=== PATIENT | female | born 1995 | race Caucasian/White ===

== ENCOUNTER 2020-05-23 15:04 | Emergency (ER) | payer OTHER, SELFPAY ==
[2020-05-23 15:05] VITALS: BP 133/90; PULSE 87; RESP 17; TEMP 36.8; O2SAT 98; BMI 16.5
--- NOTE | 2020-05-23 15:20 | HMH.EDGENADL ---
ED Disposition Clinical Impression: Acute anxiety, Medication side effect Disposition: Home, Self-Care Condition on Discharge: Good Instructions: DI for Anxiety -- Adult Additional Instructions: Do not take Paxil. Follow-up with primary care provider next week. Referrals: Siomara Gallegos PA [Primary Care Provider] - - Critical Care Critical Care Time: No Attestation: On 05/23/20, the high probability of a clinically significant, sudden or life threatening deterioration of the following system(s) required my full and direct attention, intervention and personal management. The time I documented below is in addition to time spent performing reported procedures but includes the following listed in this critical care notation. Medical Decision Making - Medical Records Medical records reviewed: Yes: I reviewed the patient's medical records. - Andrew Inquiry Pt receiving controlled substance: Yes (single dose in ED) Andrew was queried for this patient: No Reason not queried -: Emergent pt cond-no time Risks and benefits of using a controlled substance: were not discussed with pt by me Vital Signs: 05/23/20 15:05 05/23/20 15:37 Temperature 98.2 F 98.1 F Temperature Source Oral Oral Pulse Rate 87 Pulse Rate [Right] 87 Respiratory Rate 17 16 Blood Pressure 130/90 Blood Pressure [Right Arm] 133/90 Blood Pressure Mean [Right Arm] 104 Blood Pressure Source Automatic Cuff Blood Pressure Position Sitting 02 Sat by Pulse Oximetry 98 Oxygen Delivery Method Room Air - Lab Data Lab Results 05/23/20 15:23: Urine Color Yellow, Urine Appearance Clear, Urine pH 7.0, Ur Specific [place] <= 1.005, Urine Protein Negative, Urine Glucose (UA) Negative, Urine Ketones Negative, Urine Blood Negative, Urine Nitrate Negative, Urine Bilirubin Negative, Urine Urobilinogen 0.2, Ur Leukocyte Esterase Negative, Urine RBC None, Urine WBC Occasional, Ur Squamous Epith Cells 5-10, Urine Bacteria None 05/23/20 15:23: Urine HCG, Qual Negative 05/23/20 15:23: Urine Opiates Screen Negative, Urine Methadone Screen Negative, Ur Barbituates Screen Negative, Ur Phencyclidine Scrn Negative, Ur Amphetamines Screen Negative, U Benzodiazepines Scrn Negative, Urine Cocaine Screen Negative, U Marijuana (THC) Screen Negative Orders (Tests/Meds): ED MEDICATIONS Discontinued Medications Generic Name Dose Route Start Last Admin Trade Name Freq PRN Reason Stop Dose Admin Lorazepam 2 mg 05/23/20 15:27 05/23/20 15:29 Ativan 1mg Tablet PO 05/23/20 15:28 2 mg ONCE ONE Administration General Adult HPI - General Stated complaint: medication reaction Time Seen by Provider: 05/23/20 15:20 - History of Present Illness HPI narrative: Complains of anxiety/medication reaction. She was seen by her primary care provider on 05/20/2020 for anxiety and depression and was started on Paxil daily. She has had 3 doses and has developed shakiness and a feeling of anxiety and panic attack. Mother says that they called the doctor in the emergency room this morning and they were advised to discard the medication. She has not taken a dose today, but says that she is still experiencing symptoms and mother says she felt like she needed to bring her in so that she can get something to smooth her out and help with her anxiety and shakiness. She says she has an appointment for follow-up with her primary care provider. - Related Data Home Medications Medication Instructions Recorded Confirmed PARoxetine HCl [Paxil] 10 mg PO DAILY 05/23/20 05/23/20 Allergies Allergy/AdvReac Type Severity Reaction Status Date / Time No Known Allergies Allergy Verified 05/20/20 13:54 [facility] History - Hepatitis A Screen Attestation statement:: This patient has been screened for Hepatitis A risk factors. I have reviewed the patient's past medical history: Yes Medical History: Denies:: Diabetes Mellitus Type 1, Diabetes Mellitus Type
[2020-05-23 15:25] LABS: Microscopic, Urine URINE MICROSCOPIC (MICROSCOPIC)
[2020-05-23 15:33] LABS: Appearance,Urine CLEAR (Clear); Bilirubin,Urine Negative (Negative); Blood, Urine Negative (Negative); Color,Urine YELLOW (Yellow); Glucose,Urine (UA) Negative (Negative); Ketones,Urine Negative (Negative); Leukocyte Esterase,Urine Negative (Negative); Nitrate,Urine Negative (Negative); Protein,Urine Negative (Negative); Specific Gravity, Urine <= 1.005 (1.005-1.030); Urobilinogen,Urine 0.2 EU/dl (0.2)
[2020-05-23 15:35] LABS: Urine Pregnancy, HCG Qual. Negative (Negative)
[2020-05-23 15:37] VITALS: BP 130/90; PULSE 87; RESP 16; TEMP 36.7; O2SAT 98
[2020-05-23 15:38] LABS: WBC,Urine Occasional #/hpf (0-3)
[2020-05-23 15:44] LABS: Barbiturates Screen,Urine Negative ng/ml (<200)
[2020-05-23 15:45] LABS: Benzodiazepines Screen,Urine Negative ng/ml (<200)
[2020-05-23 15:46] LABS: Amphetamine/Metha Screen,Urine Negative ng/ml (<1000); Cannabinoid Screen,Urine Negative ng/ml (<50)
[2020-05-23 15:47] LABS: Cocaine Screen,Urine Negative ng/ml (<300)
[2020-05-23 15:48] LABS: Methadone Screen,Urine Negative ng/ml (<300); Opiate Screen,Urine Negative ng/ml (<300)
[2020-05-23 15:49] LABS: Phencyclidine Screen,Urine Negative ng/ml (<25)
== END 2020-05-23 15:38 | disposition home or self-care (01) ==
PROVIDERS: Emergency Provider Emergency Medicine; PCP Physician Assistant
DX: G25.1 Drug-induced tremor (principal); T43.225A Adverse effect of selective serotonin reuptake inhibitors, initial encounter; Y92.019 Unspecified place in single-family (private) house as the place of occurrence of the external cause; F41.8 Other specified anxiety disorders
CPT/HCPCS: 80305; 81001; 81025; 99282

== ENCOUNTER 2020-09-11 14:19 | Emergency (ER) | payer OTHER, SELFPAY ==
[2020-09-11 14:28] VITALS: BP 97/67; PULSE 68; RESP 20; TEMP 36.7; O2SAT 100; BMI 17.4
[2020-09-11 14:30] VITALS: BP 97/67; PULSE 68; RESP 20; TEMP 36.7; O2SAT 100; BMI 17.4
--- NOTE | 2020-09-11 14:37 | HMH.EDUTC ---
[facility] [place] Disposition Clinical Impression: Viral syndrome Migraine headache Qualifiers: Migraine type: unspecified Status migrainosus presence: without status migrainosus Intractability: not intractable Qualified Code(s): G43.909 - Migraine, unspecified, not intractable, without status migrainosus Disposition: Home, Self-Care Condition on Discharge: Good Instructions: DI for Viral Syndrome, Preventing the Spread of Coronavirus Discharge Instructions Additional Instructions: Drink plenty of fluids. Take tylenol or ibuprofen for pain or fever. Follow up with your regular doctor. GO TO THE ER FOR ANY WORSENING SYMPTOMS Referrals: Siomara Gallegos PA [Primary Care Provider] - Forms: Work/School Release Time of Disposition: 15:12 Medical Decision Making - Medical Records Medical records reviewed: No: I reviewed the patient's medical records. - Andrew Inquiry Pt receiving controlled substance: No Vital Signs: 09/11/20 14:28 09/11/20 14:30 09/11/20 15:17 Temperature 98.1 F 98.1 F 98.1 F Temperature Source Oral Oral Oral Pulse Rate 68 Pulse Rate [Right Radial] 68 68 Respiratory Rate 20 20 20 Blood Pressure 97/67 L Blood Pressure [Right Arm] 97/67 L 97/67 L Blood Pressure Mean [Right Arm] 77 77 Blood Pressure Source Automatic Cuff Blood Pressure Source [Right Arm] Automatic Cuff Automatic Cuff Blood Pressure Position Sitting Blood Pressure Position [Right Arm] Sitting Sitting 02 Sat by Pulse Oximetry 100 100 Oxygen Delivery Method Room Air Room Air Room Air - Lab Data Lab Results 09/11/20 14:41: Influenza Type A Ag Negative, Influenza Type B Ag Negative 09/11/20 14:41: Strep Scn Rapid Clinic Negative Orders (Tests/Meds): ORDERS Category Date Time Status Strep Screen Confirmation Stat Micro 09/11/20 14:41 Received [facility] [place] HPI - General Stated complaint: burred vision, headache Time Seen by Provider: 09/11/20 14:37 Mode of Arrival: Ambulatory Source of Information: Patient Limitations: No Limitations Description of Symptoms (Recalled from Triage Doc. by RN): c/o fever and blurry vision when the her fever was high of 102, only pain behind her eyes at this time. Some nausea and headache. Her work wants her tested for covid HEENT Symptoms (Recalled from RN notes): Yes Resp Symptoms (Recalled from RN notes): No Skin Symptoms (Recalled from RN notes): No MS Symptoms (Recalled from RN notes): No Functional Status (Recalled from RN notes): WNL - History of Present Illness Provider Complaint: She states that she woke up this morning running a fever up to 101 and chilling. Since then she has had headache and blurry vision. She has a history of migraine headache, but she has never had blurry vision with them. - Related Data Previous Rx's Medication Instructions Recorded quetiapine 25 mg tablet 25 mg PO QHS #30 tab 08/10/20 Allergies Allergy/AdvReac Type Severity Reaction Status Date / Time paroxetine AdvReac Intermediate Verified 07/29/20 13:46 - Worker's Comp Is this a Worker's Comp case?: No [facility] History - Hepatitis A Screen Drug use history?: No High risk sexual behaviors?: No History of sexually transmitted infection?: No Currently employed?: No Childcare worker?: No Do you have indoor plumbing?: Yes Do you have electricity?: Yes Attestation statement:: This patient has been screened for Hepatitis A risk factors. I have reviewed the patient's past medical history: Yes Medical History: Denies:: Diabetes Mellitus Type 1, Diabetes Mellitus Type 2 Other Surgeries: Yes: No Previous Surgery - Social History Smoking Status: Never smoker Alcohol Intake: never Substance Use Type: denies use Occupational Status: employed Housing: house Household Members: family Family Hx:: Cancer ROS Obtained: Yes All systems reviewed & no additional complaints - Constitutional Constitutional: Denies chills, Reports fever(s), Reports poor appetite, Repor
[2020-09-11 15:17] VITALS: BP 97/67; PULSE 68; RESP 20; TEMP 36.7; O2SAT 100
[2020-09-11 17:04] LABS: UTC Strep Screen (Rapid) Negative (Negative)
[2020-09-11 17:05] LABS: UTC Influenza A Antigen Negative (Negative); UTC Influenza B Antigen Negative (Negative)
== END 2020-09-11 15:18 | disposition home or self-care (01) ==
PROVIDERS: Emergency Provider Nurse Practitioner Family; PCP Physician Assistant
DX: Z20.828 Contact with and (suspected) exposure to other viral communicable diseases (principal); B34.9 Viral infection, unspecified; G43.909 Migraine, unspecified, not intractable, without status migrainosus
CPT/HCPCS: 87804; 87880; 99202; U0003

== ENCOUNTER → 2020-09-18 18:04 | Outpatient (CLI) | payer OTHER, SELFPAY | PROVIDERS: Visit Provider Nurse Practitioner Family | DX: N39.0 Urinary tract infection, site not specified (principal) | CPT/HCPCS: 87086 ==

== ENCOUNTER → 2020-09-25 14:45 | Outpatient (CLI) | payer OTHER, SELFPAY ==
--- NOTE | 2020-09-25 14:45 | US_ITS ---
PROCEDURE: US TRANSVAGINAL CLINICAL INDICATION: pelvic pain COMPARISON: No exams were available for comparison FINDINGS: UTERUS: 8cm x 5cmx 5cm with a combined endometrial thickness of 6.6mm LEFT OVARY: [id number] with a volume of 9.1ml. RIGHT OVARY: [id number] with a volume of 5.6ml. There is a small nabothian cyst. Bilateral ovarian blood flow is present with bilateral ovarian follicles. IMPRESSION: Negative pelvic ultrasound Dictated by: Stoney Sheth MD 09/25/2020 15:15 Stoney Sheth MD in [place] 09/25/2020 15:15
== END ==
PROVIDERS: PCP Physician Assistant; Visit Provider Nurse Practitioner Family
DX: R10.30 Lower abdominal pain, unspecified (principal)
CPT/HCPCS: 76830

== ENCOUNTER → 2021-02-23 17:55 | Outpatient (CLI) | payer OTHER, SELFPAY | PROVIDERS: Visit Provider Physician Assistant | DX: R39.9 Unspecified symptoms and signs involving the genitourinary system (principal) | CPT/HCPCS: 87086 ==

== ENCOUNTER 2021-03-19 14:33 | Emergency (ER) | payer OTHER, SELFPAY ==
[2021-03-19 15:10] VITALS: PULSE 78; RESP 18; TEMP 36.5; O2SAT 98; BMI 18.8
[2021-03-19 15:28] VITALS: BP 00/00; PULSE 78; RESP 18; TEMP 36.5; O2SAT 98
--- NOTE | 2021-03-19 15:41 | HMH.EDUTC ---
[facility] [place] Impression: Exposure to COVID-19 virus Disposition: Home, Self-Care Condition on Discharge: Good Instructions: Preventing the Spread of Coronavirus Discharge Instructions Additional Instructions: You have been tested for COVID19. Due to exposure, please follow [facility] guidelines for quarantine. Referrals: Siomara Gallegos PA [Primary Care Provider] - Time of Disposition: 15:44 Medical Decision Making - Andrew Inquiry Pt receiving controlled substance: No Vital Signs: 03/19/21 15:10 Temperature 97.7 F Temperature Source Temporal Artery Scan Pulse Rate [Right] 78 Respiratory Rate 18 02 Sat by Pulse Oximetry 98 Oxygen Delivery Method Room Air Orders (Tests/Meds): ORDERS Category Date Time Status Covid-19 Nasal PCR ([facility]) Routine Lab 03/19/21 15:[address] [facility] [place] - General Stated complaint: Covid test Time Seen by Provider: 03/19/21 15:41 Mode of Arrival: Ambulatory Source of Information: Patient Limitations: No Limitations Description of Symptoms (Recalled from Triage Doc. by RN): COVID TEST D/T EXPOSURE; DENIES SYMPTOMS HEENT Symptoms (Recalled from RN notes): No Resp Symptoms (Recalled from RN notes): No Skin Symptoms (Recalled from RN notes): No MS Symptoms (Recalled from RN notes): No Functional Status (Recalled from RN notes): WNL - History of Present Illness Provider Complaint: Uncle tested positive for COVID19 this morning after being exposed at work last week. She denies symptoms. Onset (ago): day(s) (1) Relieving factors: none Exacerbating factors: none Treatments prior to arrival: none - Related Data Previous Rx's Medication Instructions Recorded vilazodone 10 mg tablet 10 mg PO DAILY #30 tab 02/23/21 venlafaxine 37.5 mg 37.5 mg PO DAILY #30 cap 03/02/21 capsule,extended release 24 hr Allergies Allergy/AdvReac Type Severity Reaction Status Date / Time paroxetine AdvReac Intermediate Verified 02/23/21 14:19 - Worker's Comp Is this a Worker's Comp case?: No [facility] History - Hepatitis A Screen Drug use history?: No High risk sexual behaviors?: No History of sexually transmitted infection?: No Currently employed?: No Childcare worker?: No Do you have indoor plumbing?: Yes Do you have electricity?: Yes Attestation statement:: This patient has been screened for Hepatitis A risk factors. I have reviewed the patient's past medical history: Yes Medical History: Reports:: Anxiety, Depression, Diabetes Mellitus Type 2 Denies:: Diabetes Mellitus Type 1 Other Surgeries: Yes: No Previous Surgery Amputation: No Fractures: No - Social History Smoking Status: Never smoker Alcohol Intake: never Substance Use Type: denies use Occupational Status: employed Housing: house Household Members: family - Psychiatric History Pschychiatric History:: Reports:: Anxiety, Depression Family Hx:: Cancer ROS Obtained: Yes All systems reviewed & no additional complaints Physical Exam - General General appearance: alert, in no apparent distress - Head Head exam: normocephalic - Eye Eye exam: Present: PERRL - ENT ENT exam: Present: normal oropharynx - Respiratory Respiratory exam: Present: normal lung sounds bilaterally - Cardiovascular Cardiovascular exam: Present: regular rate, normal rhythm - Neurological Exam Neurological exam: Present: alert, oriented X3 - Psychiatric Psychiatric exam: Present: normal affect, normal mood - Skin Skin exam: Present: warm, dry, intact
== END 2021-03-19 15:42 | disposition home or self-care (01) ==
PROVIDERS: Emergency Provider Physician Assistant; PCP Physician Assistant
DX: Z20.822 Contact with and (suspected) exposure to COVID-19 (principal); F41.8 Other specified anxiety disorders; E11.9 Type 2 diabetes mellitus without complications
CPT/HCPCS: 99202; G0463; U0003

== ENCOUNTER 2021-05-04 18:05 | Emergency (ER) | payer OTHER, SELFPAY ==
[2021-05-04 18:18] VITALS: BP 116/68; PULSE 85; RESP 16; TEMP 37; O2SAT 98; BMI 16.2
--- NOTE | 2021-05-04 18:21 | HMH.EDGENADL ---
ED Disposition Clinical Impression: Vaginal bleeding affecting early Disposition: Home, Self-Care Condition on Discharge: Good Additional Instructions: Return to the laboratory at [facility] on afternoon 05/06/2021 for beta hCG level. Call Dr. Ogden/Dr. Reinoso Monday to obtain results and arrange further follow-up. Return to the emergency department if severe abdominal pain or bleeding. Referrals: Siomara Gallegos PA [Primary Care Provider] - Leah Ogden MD [Staff Physician] - - Critical Care Critical Care Time: No Attestation: On 05/04/21, the high probability of a clinically significant, sudden or life threatening deterioration of the following system(s) required my full and direct attention, intervention and personal management. The time I documented below is in addition to time spent performing reported procedures but includes the following listed in this critical care notation. Medical Decision Making - Andrew Inquiry Pt receiving controlled substance: No Vital Signs: 05/04/21 18:18 Temperature 98.6 F Temperature Source Oral Pulse Rate [Radial] 85 Respiratory Rate 16 Blood Pressure [Right Arm] 116/68 Blood Pressure Mean [Right Arm] 84 Blood Pressure Position [Right Arm] Sitting 02 Sat by Pulse Oximetry 98 Oxygen Delivery Method Room Air - Lab Data Lab Results 05/04/21 18:15: Urine Color Yellow, Urine Appearance Clear, Urine pH 7.0, Ur Specific [place] 1.015, Urine Protein Negative, Urine Glucose (UA) Negative, Urine Ketones Negative, Urine Blood 1+, Urine Nitrate Negative, Urine Bilirubin Negative, Urine Urobilinogen 0.2, Ur Leukocyte Esterase 1+ A, Urine RBC 3-5, Urine WBC Occasional, Ur Squamous Epith Cells 3-5, Urine Bacteria None 05/04/21 18:15: Urine HCG, Qual Positive 05/04/21 18:38: WBC 8.4, RBC 4.07 L, Hgb 13.1, Hct 38.1, MCV 93.7, MCH 32.1 H, MCHC 34.3, RDW 12.1, Plt Count 476 H, MPV 7.0 L, Neut % (Auto) 65.0, Lymph % (Auto) 31.0, [place] % (Auto) 2.6, Eos % (Auto) 0.8, Baso % (Auto) 0.5, Neut # (Auto) 5.5, Lymph # (Auto) 2.6, [place] # (Auto) 0.2, Eos # (Auto) 0.1, Baso # (Auto) 0.1 05/04/21 18:38: Sodium 140, Potassium 3.5, Chloride 104, Carbon Dioxide 26, Anion Gap 13.5, BUN 6 L, Creatinine 0.60, Estimated Creat Clear 96, Estimated GFR 124, Est GFR ( Amer) 150, Glucose 83, Calcium 9.0, Total Bilirubin 0.9, AST 20, ALT 9 L, Alkaline Phosphatase 50, Total Protein 7.5, Albumin 4.4, Globulin 3.1, Albumin/Globulin Ratio 1.4, HCG, Quant 943 H 05/04/21 18:38: Blood Type O Positive Result diagrams: 05/04/21 18:38 05/04/21 18:38 Orders (Tests/Meds): ORDERS Category Date Time Status Urine Culture Stat Micro 05/04/21 18:15 Received US OB transvaginal Stat Ultrasound 05/04/21 18:43 Taken - US Data US Images: Pelvis Findings Narrative: As per [facility] procedure, ultrasound report received from formula technician: No identified. Endometrium 1.1 cm. Left ovarian cyst 1.9 x 1.7 cm. Right ovarian cyst 4.3 x 4.3 cm. Good flow to both ovaries. No signs of ectopic . - Physician Consults Physician Consulted: Alin Time: 19:40 Reason -: Obstetrical Eval/Care Comment/Response: Repeat beta-hCG as outpatient afternoon, patient to call their office Monday morning to obtain results and arrange further follow-up and evaluation. Medical Decision Narrative: The patient's quantitative beta-hCG is below the sono discrimination. She will need a repeat beta-hCG in 2 days and close follow-up with [employer]. She has decided to use Dr. Reinoso. General Adult HPI - General Stated complaint: Preg Spotting cramping Time Seen by Provider: 05/04/21 18:21 - History of Present Illness HPI narrative: Pelvic cramping and vaginal spotting for couple of days. Took a test today and it was positive. This would be her third , 2 vaginal deliveries previously. She has an [employer] physician in [place], does not know who
[2021-05-04 18:25] LABS: Microscopic, Urine URINE MICROSCOPIC (MICROSCOPIC)
[2021-05-04 18:28] LABS: Appearance,Urine CLEAR (Clear); Bilirubin,Urine Negative (Negative); Blood, Urine 1+ (Negative); Color,Urine YELLOW (Yellow); Glucose,Urine (UA) Negative (Negative); Ketones,Urine Negative (Negative); Leukocyte Esterase,Urine 1+ (Negative); Nitrate,Urine Negative (Negative); Protein,Urine Negative (Negative); Specific Gravity, Urine 1.015 (1.005-1.030); Urobilinogen,Urine 0.2 EU/dl (0.2)
[2021-05-04 18:31] LABS: Urine Pregnancy, HCG Qual. Positive (Negative)
--- NOTE | 2021-05-04 18:43 | US_ITS ---
PROCEDURE INFORMATION: Exam: US , Transvaginal Exam date and time: 05/04/2021 6:43 PM Age: 25 years old Clinical indication: Lmp or gestational age (in weeks): Lmp unkonwn; ; Patient HX: Bleeding with positive hcg---. Hcg, quant is 943; Additional info: Bleeding, , R/O ectopic TECHNIQUE: Imaging protocol: Real-time transvaginal obstetrical ultrasound of the maternal pelvis with image documentation. Transvaginal imaging was used for better evaluation of the fetus, adnexa, and/or cervix. COMPARISON: US TRANSVAGINAL 09/25/2020 2:58 PM FINDINGS: Gestation: There is no intrauterine gestational sac. MATERNAL: Uterus: The uterus measures 8.1 x 6.2 x 4.3 cm and is anteverted. The endometrium measures 1.2 cm, normal. Right adnexa: The right ovary measures 5.0 x 3.4 cm and demonstrates a 4.3 x 3.5 x 4.3 cm cyst with reticular internal echoes and retracting clot. Left adnexa: The left ovary measures 3.5 x 2.0 x 3.3 cm with a simple left ovarian cyst that measures 1.9 x 1.7 x 1.8 cm. Intraperitoneal space: There is no free fluid in the pelvis. IMPRESSION: 1. No intrauterine gestational sac. This represents a of unknown location. Follow-up beta HCG and pelvic ultrasound as clinically indicated. 2. 1.9 cm simple left ovarian cyst and 4.3 cm right ovarian cyst with internal reticular echoes and retracting clot suspicious for a hemorrhagic cyst.
[2021-05-04 18:49] LABS: Basophils # 0.1 K/mm3 (0-0.2); Basophils % 0.5 % (0.1-2.0); Eosinophils # 0.1 K/mm3 (0.0-0.4); Eosinophils % 0.8 % (0.1-12.0); Hematocrit 38.1 % (37.0-47.0); Hemoglobin 13.1 g/dL (12.2-16.2); Lymphocytes # 2.6 K/mm3 (0.7-4.5); Mean Corpuscular HGB Conc 34.3 g/dL (31.8-35.4); Mean Corpuscular Hemoglobin 32.1 pg (27.0-31.2); Mean Corpuscular Volume 93.7 fl (81-99); Monocytes # 0.2 K/mm3 (0.1-1.0); Monocytes % 2.6 % (1.7-9.3); Neutrophils # 5.5 K/mm3 (1.8-7.8); Platelet Count 476 K/mm3 (142-424); Red Blood Count 4.07 M/mm3 (4.20-5.40); Red Cell Distribution Width 12.1 % (11.5-17.5); White Blood Count 8.4 K/mm3 (4.8-10.8)
[2021-05-04 18:52] LABS: Chloride 104 mmol/L (98-107); Potassium 3.5 mmoL/L (3.5-5.1); Sodium 140 mmol/L (136-145)
[2021-05-04 18:53] LABS: WBC,Urine Occasional #/hpf (0-3)
[2021-05-04 18:54] LABS: Blood Urea Nitrogen 6 mg/dl (7-17); Creatinine Clearance Estimated 96 mL/min (50-200); Estimated Glomerular Filt Rate 124 ml/min (>60); GFR (African American) 150 ML/MIN (>60)
[2021-05-04 18:55] LABS: Alanine Aminotransferase 9 U/L (12-78); Albumin Level 4.4 g/dl (3.5-5.0); Albumin/Globulin Ratio 1.4 (1.1-1.8); Alkaline Phosphatase 50 U/L (38-126); Anion Gap 13.5 mEq/L (5-15); Aspartate Amino Transferase 20 U/L (14-36); Bilirubin,Total 0.9 mg/dl (0.2-1.3); Carbon Dioxide 26 mmol/L (22.0-30.0); Globulin 3.1 g/dL (1.3-3.2); Glucose 83 mg/dl (74-100); Total Protein,Serum 7.5 g/dl (6.3-8.2)
[2021-05-04 19:12] LABS: HCG,Quantitative 943 mIU/ml (0-5.42)
--- NOTE | 2021-05-04 19:39 | PC.NURSE ---
Mila speaking with at this time
[2021-05-04 19:40] VITALS: BP 111/58; PULSE 85; RESP 17; TEMP 36.8; O2SAT 98
== END 2021-05-04 19:55 | disposition home or self-care (01) ==
PROVIDERS: Emergency Provider Emergency Medicine; PCP Physician Assistant
DX: O20.9 Hemorrhage in early pregnancy, unspecified (principal); F41.8 Other specified anxiety disorders
CPT/HCPCS: 76817; 80053; 81001; 81025; 84702; 85025; 86900; 86901; 87086; 99283

== ENCOUNTER → 2021-05-06 12:49 | Outpatient (CLI) | payer OTHER, SELFPAY ==
[2021-05-06 13:53] LABS: HCG,Quantitative 259 mIU/ml (0-5.42)
== END ==
PROVIDERS: Visit Provider Emergency Medicine
DX: O20.9 Hemorrhage in early pregnancy, unspecified (principal)
CPT/HCPCS: 36415; 84702

== ENCOUNTER → 2021-05-26 11:43 | Outpatient (CLI) | payer OTHER, SELFPAY ==
[2021-05-26 11:45] LABS: Microscopic, Urine URINE MICROSCOPIC (MICROSCOPIC)
[2021-05-26 11:57] LABS: Appearance,Urine SL CLOUDY (Clear); Bilirubin,Urine Negative (Negative); Blood, Urine TRACE-L (Negative); Color,Urine YELLOW (Yellow); Glucose,Urine (UA) Negative (Negative); Ketones,Urine Negative (Negative); Leukocyte Esterase,Urine 1+ (Negative); Nitrate,Urine Negative (Negative); Protein,Urine Negative (Negative); Specific Gravity, Urine >= 1.030 (1.005-1.030); Urobilinogen,Urine 0.2 EU/dl (0.2)
[2021-05-28 19:22] LABS: Neisseria gonorrhoeae, NAA Negative (Negative)
== END ==
PROVIDERS: Visit Provider Nurse Practitioner Family
DX: N89.8 Other specified noninflammatory disorders of vagina (principal)
CPT/HCPCS: 81001; 87086; 87210; 87491; 87591

== ENCOUNTER 2022-01-09 00:17 | Emergency (ER) | payer OTHER, SELFPAY ==
[2022-01-09 00:19] VITALS: BP 118/83; PULSE 76; RESP 16; TEMP 36.9; O2SAT 100; BMI 16.8
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
[2022-01-09 01:41] VITALS: BP 116/73; PULSE 83; RESP 16; TEMP 36.6; O2SAT 100
== END 2022-01-09 01:43 | disposition home or self-care (01) ==
PROVIDERS: Emergency Provider Emergency Medicine; PCP Physician Assistant
DX: S61.210A Laceration without foreign body of right index finger without damage to nail, initial encounter (principal); W45.8XXA Other foreign body or object entering through skin, initial encounter; Y92.019 Unspecified place in single-family (private) house as the place of occurrence of the external cause; Z23 Encounter for immunization
CPT/HCPCS: 12001; 73130; 90714; 96372; 99282; 99283

== ENCOUNTER → 2022-02-14 11:27 | Outpatient (CLI) | payer OTHER, SELFPAY ==
[2022-02-14 12:52] LABS: HCG,Quantitative 1949 mIU/ml (0-5.42)
== END ==
PROVIDERS: PCP Physician Assistant; Visit Provider Nurse Practitioner Obstetrics & Gynecology
DX: N92.6 Irregular menstruation, unspecified (principal); G56.90 Unspecified mononeuropathy of unspecified upper limb
CPT/HCPCS: 84702

== ENCOUNTER 2022-02-19 14:32 | Emergency (ER) | payer OTHER, SELFPAY ==
[2022-02-19 14:33] VITALS: BP 94/58; PULSE 83; RESP 18; TEMP 37.1; O2SAT 100; BMI 19.3
[2022-02-19 14:39] VITALS: BP 105/74; PULSE 84; RESP 16; O2SAT 100; BMI 18.7
[2022-02-19 15:51] VITALS: BP 116/65; PULSE 94; RESP 18; TEMP 36.9; O2SAT 100; BMI 17.9
--- NOTE | 2022-02-19 15:57 | HMH.EDUTC ---
[facility] [place] Disposition Condition on Discharge: Good <Jordan Krishnan - Last Filed: 02/19/22 19:03> Condition on Discharge: Good <Samuel Moya - Last Filed: 02/22/22 22:14> Clinical Impression: Qualifiers: Weeks of gestation: less than 8 weeks Qualified Code(s): Z3A.01 - Less than 8 weeks gestation of Disposition: Home, Self-Care Instructions: Diet Additional Instructions: Please return to the emergency department if his symptoms worsen in any way. Follow-up with an gimp buttonhole machine operator if your symptoms do not improve. You may take [id number] Tylenol as needed for pain. Referrals: Siomara Gallegos PA [Primary Care Provider] - Medical Decision Making - Medical Records Medical records reviewed: Yes: I reviewed the patient's medical records. - Andrew Inquiry Pt receiving controlled substance: No - Lab Data Lab results reviewed: Yes: I reviewed the patient's lab results. Result diagrams: 02/19/22 16:50 02/19/22 16:50 - US Data US Images: Pelvis ED US Reviewed: Yes: I have viewed radiologist's interpretation Preliminary Findings: Normal/NAD (Intrauterine identified) <Jordan Krishnan - Last Filed: 02/19/22 19:03> - Medical Records Medical records reviewed: No: I reviewed the patient's medical records. - Andrew Inquiry Pt receiving controlled substance: No - Lab Data Lab results reviewed: Yes: I reviewed the patient's lab results. Result diagrams: 02/19/22 16:50 02/19/22 16:50 <Samuel Moya - Last Filed: 02/22/22 22:14> Vital Signs: 02/19/22 14:33 02/19/22 14:39 02/19/22 15:51 Temperature 98.7 F 98.4 F Temperature Source Oral Oral Pulse Rate Pulse Rate [Right] 83 84 94 H Respiratory Rate 18 16 18 Blood Pressure Blood Pressure [Right Arm] 94/58 L 105/74 L 116/65 Blood Pressure Mean [Right Arm] 70 84 82 Blood Pressure Source [Right Arm] Automatic Cuff Automatic Cuff Blood Pressure Position [Right Arm] Sitting Sitting 02 Sat by Pulse Oximetry 100 100 100 Oxygen Delivery Method Room Air Room Air 02/19/22 19:15 Temperature 98.9 F Temperature Source Pulse Rate 77 Pulse Rate [Right] Respiratory Rate 20 Blood Pressure 103/62 L Blood Pressure [Right Arm] Blood Pressure Mean [Right Arm] Blood Pressure Source [Right Arm] Blood Pressure Position [Right Arm] 02 Sat by Pulse Oximetry Oxygen Delivery Method Room Air - Lab Data Lab Results 02/19/22 15:49: Urine Color Yellow, Urine Appearance Clear, Urine pH 7.0, Ur Specific [place] 1.010, Urine Protein Negative, Urine Glucose (UA) Negative, Urine Ketones Negative, Urine Blood Negative, Urine Nitrate Negative, Urine Bilirubin Negative, Urine Urobilinogen 0.2, Ur Leukocyte Esterase Negative 02/19/22 15:57: Influenza Type A Ag Negative, Influenza Type B Ag Negative 02/19/22 15:59: Group A Strep Rapid Negative 02/19/22 16:50: WBC 9.4, RBC 4.18 L, Hgb 13.6, Hct 40.5, MCV 97.0, MCH 32.5 H, MCHC 33.5, RDW 12.9, Plt Count 475 H, MPV 7.7, Neut % (Auto) 68.0, Lymph % (Auto) 27.8, [place]gg % (Auto) 2.5, Eos % (Auto) 0.4, Baso % (Auto) 1.4, Neut # (Auto) 6.4, Lymph # (Auto) 2.6, [place]gg # (Auto) 0.2, Eos # (Auto) 0.0, Baso # (Auto) 0.1 02/19/22 16:50: Sodium 137, Potassium 4.2, Chloride 105, Carbon Dioxide 26, Anion Gap 10.2, BUN 8, Creatinine 0.60, Estimated Creat Clear 101, Estimated GFR 123, Est GFR ( Amer) 149, Glucose 86, Calcium 8.6, Total Bilirubin 0.7, AST 25, ALT 9 L, Alkaline Phosphatase 46, Total Protein 7.0, Albumin 4.3, Globulin 2.7, Albumin/Globulin Ratio 1.6, HCG, Quant [id number] H Orders (Tests/Meds): ED MEDICATIONS Discontinued Medications Generic Name Dose Route Start Last Admin Trade Name Freq PRN Reason Stop Dose Admin Sodium Chloride 10 ml 02/19/22 16:49 Sodium Chloride 0.9% 10ml Flush Syringe IV 03/21/22 16:48 NEEDED PRN Maintain IV Site Medical Decision Narrative: The patient's work-up in the emergency department did not reveal any life-
[2022-02-19 16:04] LABS: Apearance,Urine Clear (Clear); Bilirubin,Urine Negative (Negative); Blood, Urine Negative (Negative); Color,Urine Yellow (Yellow); Glucose,Urine (UA) Negative (Negative); Ketones,Urine Negative (Negative); Protein,Urine Negative (Negative); UTC Leukocyte Esterase,Urine Negative (Negative); UTC Nitrate,Urine Negative (Negative); Urobilinogen,Urine 0.2 EU/dl (0.2)
[2022-02-19 16:11] LABS: UTC Influenza A Antigen Negative (Negative); UTC Influenza B Antigen Negative (Negative)
[2022-02-19 16:20] LABS: Strep Scrn Group A (Rapid) Negative (Negative)
[2022-02-19 17:19] LABS: Basophils # 0.1 K/mm3 (0-0.2); Basophils % 1.4 % (0.1-2.0); Eosinophils % 0.4 % (0.1-12.0); Hematocrit 40.5 % (37.0-47.0); Hemoglobin 13.6 g/dL (12.2-16.2); Lymphocytes # 2.6 K/mm3 (0.7-4.5); Lymphocytes % 27.8 % (10-50); Mean Corpuscular HGB Conc 33.5 g/dL (31.8-35.4); Mean Corpuscular Hemoglobin 32.5 pg (27.0-31.2); Mean Platelet Volume 7.7 fl (7.4-10.4); Monocytes # 0.2 K/mm3 (0.1-1.0); Monocytes % 2.5 % (1.7-9.3); Neutrophils # 6.4 K/mm3 (1.8-7.8); Platelet Count 475 K/mm3 (142-424); Red Blood Count 4.18 M/mm3 (4.20-5.40); Red Cell Distribution Width 12.9 % (11.5-17.5); White Blood Count 9.4 K/mm3 (4.8-10.8)
[2022-02-19 17:22] LABS: Chloride 105 mmol/L (98-107); Potassium 4.2 mmoL/L (3.5-5.1); Sodium 137 mmol/L (136-145)
[2022-02-19 17:24] LABS: Blood Urea Nitrogen 8 mg/dl (7-17)
[2022-02-19 17:25] LABS: Alanine Aminotransferase 9 U/L (12-78); Albumin Level 4.3 g/dl (3.5-5.0); Albumin/Globulin Ratio 1.6 (1.1-1.8); Alkaline Phosphatase 46 U/L (38-126); Anion Gap 10.2 mEq/L (5-15); Aspartate Amino Transferase 25 U/L (14-36); Bilirubin,Total 0.7 mg/dl (0.2-1.3); Calcium 8.6 mg/dl (8.4-10.2); Carbon Dioxide 26 mmol/L (22.0-30.0); Creatinine Clearance Estimated 101 mL/min (50-200); Estimated Glomerular Filt Rate 123 ml/min (>60); GFR (African American) 149 ML/MIN (>60); Globulin 2.7 g/dL (1.3-3.2); Glucose 86 mg/dl (74-100)
[2022-02-19 17:42] LABS: HCG,Quantitative 11102 mIU/ml (0-5.42)
--- NOTE | 2022-02-19 17:54 | PC.NURSE ---
PT resting in bed. No new needs at this time
--- NOTE | 2022-02-19 17:57 | PC.NURSE ---
and Mariana at bedside performing pelvic exam at this time.
--- NOTE | 2022-02-19 17:59 | US_ITS ---
PROCEDURE INFORMATION: Exam: US , Transvaginal Exam date and time: 02/19/2022 6:06 PM Age: 26 years old Clinical indication: Other: Rlq pain; Gestational age or lmp: Lmp dec; ; Additional info: Ob, rlq pain TECHNIQUE: Imaging protocol: Real-time transvaginal obstetrical ultrasound of the maternal pelvis with image documentation. Transvaginal imaging was used for better evaluation of the fetus, adnexa, and/or cervix. Total images: 44 COMPARISON: US OB TRANSVAGINAL 05/04/2021 6:58 PM FINDINGS: Gestation: Intrauterine gestational sac identified in the fundal endometrial cavity. Yolk sac identified measuring 3 mm diameter. No gross perigestational hemorrhage. No pole is identified at this point. BIOMETRY: Mean sac diameter: Mean sac diameter 0.93 cm, out of range. MATERNAL: Cervix: The cervix is closed and measures roughly 3.5 cm in length. Right ovary/adnexa: The right ovary measures 2.7 x 3.2 x 2.4 cm. 1.9 cm simple dominant follicle and a few smaller follicles, within normal range. Color flow documented. Left ovary/adnexa: The left ovary measures 2.8 x 2.6 x 1.9 cm. Normal grayscale appearance. Color flow documented. Intraperitoneal space: No intraperitoneal free fluid. IMPRESSION: 1. Intrauterine gestational sac identified, containing a yolk sac but no visible pole at this point. The mean sac diameter measures out of range for estimation of gestational age. 2. No gross complications of . 3. Normal ovaries demonstrating appropriate color flow with no features of torsion. No free fluid.
--- NOTE | 2022-02-19 18:00 | PC.NURSE ---
Notified rad need for transvaginal US
--- NOTE | 2022-02-19 18:22 | PC.NURSE ---
Pt gone to US
--- NOTE | 2022-02-19 18:32 | PC.NURSE ---
PT back from US. US tech giving verbal report to
[2022-02-19 19:15] VITALS: BP 103/62; PULSE 77; RESP 20; TEMP 37.2; O2SAT 100
== END 2022-02-19 19:16 | disposition home or self-care (01) ==
LOC: ER 14:38 → UTC 14:39 → ER 16:23
PROVIDERS: Nurse Practitioner Family; Emergency Provider Emergency Medicine; PCP Physician Assistant
DX: R42 Dizziness and giddiness (principal); R50.9 Fever, unspecified; R10.9 Unspecified abdominal pain; I11.0 Hypertensive heart disease with heart failure; E11.9 Type 2 diabetes mellitus without complications; F32.A Depression, unspecified; F41.9 Anxiety disorder, unspecified; Z88.8 Allergy status to other drugs, medicaments and biological substances; Z3A.01 Less than 8 weeks gestation of pregnancy
CPT/HCPCS: 76817; 80053; 81003; 84702; 85025; 87086; 87430; 87804; 99284

== ENCOUNTER 2022-09-07 22:35 | Outpatient (CLI) | payer OTHER, SELFPAY ==
[2022-09-07 22:46] VITALS: BMI 18.6
[2022-09-07 23:05] VITALS: BP 121/69; PULSE 92; RESP 17; TEMP 36.7; O2SAT 98; BMI 18.6
[2022-09-07 23:12] LABS: Microscopic, Urine URINE MICROSCOPIC (MICROSCOPIC)
[2022-09-07 23:16] LABS: Appearance,Urine CLEAR (Clear); Bilirubin,Urine Negative (Negative); Blood, Urine Negative (Negative); Color,Urine YELLOW (Yellow); Glucose,Urine (UA) Negative (Negative); Ketones,Urine Negative (Negative); Leukocyte Esterase,Urine Negative (Negative); Nitrate,Urine Negative (Negative); PH,Urine 6.5 (5.0-8.5); Protein,Urine Negative (Negative); Urobilinogen,Urine 0.2 EU/dl (0.2)
[2022-09-07 23:28] LABS: Bacteria,Urine Trace /lpf; RBC,Urine Occasional #/hpf (0-3)
[2022-09-07 23:29] LABS: Fetal Membrane Rupture (Rapid) Negative (Negative)
[2022-09-07 23:36] LABS: Barbiturates Screen,Urine Negative ng/ml (<200); Benzodiazepines Screen,Urine Negative ng/ml (<200)
[2022-09-07 23:37] LABS: Amphetamine/Metha Screen,Urine Negative ng/ml (<1000); Cannabinoid Screen,Urine Negative ng/ml (<50)
[2022-09-07 23:38] LABS: Cocaine Screen,Urine Negative ng/ml (<300)
[2022-09-07 23:39] LABS: Methadone Screen,Urine Negative ng/ml (<300); Phencyclidine Screen,Urine Negative ng/ml (<25)
[2022-09-07 23:40] LABS: Opiate Screen,Urine Negative ng/ml (<300)
[2022-09-07 23:55] LABS: Fetal Fibronectin (Rapid) Negative (Negative)
== END 2022-09-07 23:42 | disposition home or self-care (01) ==
LOC: OBOUT 22:38 → OB 22:39
PROVIDERS: PCP Physician Assistant; Visit Provider Obstetrics & Gynecology
DX: O26.853 Spotting complicating pregnancy, third trimester (principal); Z3A.33 33 weeks gestation of pregnancy
CPT/HCPCS: 80305; 81001; 82731; 84112

== ENCOUNTER → 2023-10-12 13:03 | Outpatient (CLI) | payer OTHER, SELFPAY | PROVIDERS: PCP Nurse Practitioner Family; Visit Provider Nurse Practitioner Family | DX: J02.9 Acute pharyngitis, unspecified (principal) | CPT/HCPCS: 87070 ==

== ENCOUNTER 2023-11-21 16:50 | Outpatient (CLI) | payer OTHER, SELFPAY | END 2023-11-21 23:59 | LOC: LAB.DROPOF 16:51 | PROVIDERS: PCP Nurse Practitioner Family; Visit Provider Nurse Practitioner Family | DX: J02.9 Acute pharyngitis, unspecified (principal); B95.62 Methicillin resistant Staphylococcus aureus infection as the cause of diseases classified elsewhere | CPT/HCPCS: 87070 ==

== ENCOUNTER 2023-12-19 20:45 | Outpatient (CLI) | payer OTHER, SELFPAY | END 2023-12-19 23:59 | LOC: LAB.DROPOF 20:46 | PROVIDERS: PCP Physician Assistant; Visit Provider Physician Assistant | DX: J02.9 Acute pharyngitis, unspecified (principal); B95.8 Unspecified staphylococcus as the cause of diseases classified elsewhere; J03.90 Acute tonsillitis, unspecified; B37.0 Candidal stomatitis | CPT/HCPCS: 87070 ==

== ENCOUNTER 2023-12-29 20:00 | Outpatient (CLI) | payer OTHER, SELFPAY ==
[2023-12-29 18:24] LABS: Basophils % 0.6 % (0.1-2.0); Eosinophils % 0.4 % (0.1-12.0); Hematocrit 38.1 % (37.0-47.0); Hemoglobin 12.8 g/dL (12.2-16.2); Lymphocytes % 41.9 % (10-50); Mean Corpuscular HGB Conc 33.7 g/dL (31.8-35.4); Mean Corpuscular Hemoglobin 32.2 pg (27.0-31.2); Mean Corpuscular Volume 95.6 fl (81-99); Mean Platelet Volume 8.5 fl (7.4-10.4); Monocytes # 0.3 K/mm3 (0.1-1.0); Monocytes % 4.1 % (1.7-9.3); Neutrophils # 3.8 K/mm3 (1.8-7.8); Platelet Count 473 K/mm3 (142-424); Red Blood Count 3.98 M/mm3 (4.20-5.40); Red Cell Distribution Width 12.5 % (11.5-17.5); White Blood Count 7.2 K/mm3 (4.8-10.8)
[2023-12-29 18:30] LABS: Alanine Aminotransferase 22 U/L (12-78); Albumin Level 3.8 g/dl (3.5-5.0); Albumin/Globulin Ratio 1.4 (1.1-1.8); Alkaline Phosphatase 70 U/L (38-126); Anion Gap 9.6 mEq/L (5-15); Aspartate Amino Transferase 26 U/L (14-36); Bilirubin,Total 0.7 mg/dl (0.2-1.3); Blood Urea Nitrogen 6 mg/dl (7-17); Calcium 8.8 mg/dl (8.4-10.2); Carbon Dioxide 26 mmol/L (22.0-30.0); Chloride 107 mmol/L (98-107); Chol/HDL Ratio 2.8 (1-3.5); Cholesterol 148 mg/dl (140-200); Estimated Glomerular Filt Rate 121 ml/min (>60); GFR (African American) 146 ML/MIN (>60); Globulin 2.8 g/dL (1.3-3.2); Glucose 125 mg/dl (74-100); HDL Cholesterol 52 mg/dl (40-60); Potassium 3.6 mmoL/L (3.5-5.1); Sodium 139 mmol/L (136-145); Total Protein,Serum 6.6 g/dl (6.3-8.2); Triglycerides 59 mg/dl (30-150); VLDL Cholesterol 12 mg/dL (0-40)
[2023-12-29 18:43] LABS: Direct LDL Cholesterol 74.31 mg/dL (100-129)
[2023-12-29 18:48] LABS: 25-OH Vitamin D, Total 25.7 ng/mL (30-100)
[2023-12-29 18:49] LABS: Free Thyroxine Index 2.2 ug/dL (5.93-13.13); T4 (Thyroxine) 6.4 ug/dl (5.53-11.0); Triiodothryronine (T3) Uptake 34 % (23.5-40.5)
[2023-12-29 19:02] LABS: Thyroid Stimulating Hormone 1.08 uIU/mL (0.465-4.68)
[2023-12-29 19:24] LABS: Vitamin B12 382 pg/mL (239-931)
== END 2023-12-29 23:59 ==
LOC: LAB.DROPOF 20:00
PROVIDERS: PCP Family Medicine; Visit Provider Family Medicine
DX: F41.9 Anxiety disorder, unspecified (principal); E55.9 Vitamin D deficiency, unspecified; Z79.899 Other long term (current) drug therapy
CPT/HCPCS: 80053; 80061; 82306; 82607; 84436; 84443; 84479; 85025

== ENCOUNTER 2024-10-09 08:52 | Outpatient (CLI) | payer OTHER, SELFPAY ==
--- NOTE | 2024-10-09 08:54 | CT_ITS ---
FINAL REPORT TECHNIQUE: Multiple axial CT sections were performed from the foramen magnum to the vertex. Coronal reformatted images were also obtained. Precontrast and postcontrast injection images were obtained. This study was performed with technique to keep radiation doses as low as reasonably achievable, (ALARA). Individualized dose reduction techniques using automated exposure control or adjustment of mA and/or kV according to the patient size were employed. CLINICAL HISTORY: persistent headache FINDINGS: The ventricles are normal in size. There is no evidence of hemorrhage. No masses are identified. No extra-axial fluid collection is seen. The sinuses are normal. No osseous abnormality is seen on the bone window images. Postcontrast images demonstrate no abnormal enhancement. IMPRESSION: No acute intracranial abnormality. No abnormal contrast-enhancement. Reviewed, Interpreted and Dictated by Arleen Howard MD Transcribed by Aliyah Adams Authenticated and [facility]
[2024-10-09] MEDS: SODIUM CHLORIDE 0.9% 10ML SYR (RAD ONLY) 10 ML IV (09:18)
[2024-10-09] MEDS: IOPAMIDOL-300 (61%) 100ML VIAL 100 ML IV (09:18)
== END 2024-10-09 23:59 | disposition home or self-care (01) ==
LOC: RAD 08:54
PROVIDERS: PCP Family Medicine; Visit Provider Family Medicine
DX: R51.9 Headache, unspecified (principal)
CPT/HCPCS: 70470; Q9967

== ENCOUNTER 2025-08-06 11:29 | Outpatient (CLI) | payer OTHER, SELFPAY | END 2025-08-06 23:59 | LOC: LAB.DROPOF 08-08 11:30 | PROVIDERS: PCP Family Medicine; Visit Provider Family Medicine | DX: J02.0 Streptococcal pharyngitis (principal); B95.5 Unspecified streptococcus as the cause of diseases classified elsewhere | CPT/HCPCS: 87070 ==